=== PATIENT | male | born 1980 | race Caucasian/White ===

== ENCOUNTER 2022-01-04 20:11 | Emergency (ER) | payer OTHER ==
[2022-01-04] MEDS ORDERED: NAPROXEN500 MG PO (22:26)
[2022-01-04] MEDS ORDERED: VIBRAMYCIN100 MG PO (22:26)
[2022-01-04] MEDS ORDERED: NORCO 5-325 TA1 EACH PO (22:26)
== END 2022-01-04 22:42 | disposition home or self-care (01) ==
LOC: FER 20:11
DX: S61.234A Puncture wound without foreign body of right ring finger without damage to nail, initial encounter (principal); Z23 Encounter for immunization; W45.8XXA Other foreign body or object entering through skin, initial encounter
CPT/HCPCS: 73130; 90471; 90715